=== PATIENT | female | born 2000 | race Caucasian/White ===

== ENCOUNTER 2024-11-11 23:01 | Emergency (ER) | payer SELFPAY ==
[2024-11-11 21:48] VITALS: BMI 23.3
[2024-11-11 21:55] VITALS: BP 132/82; PULSE 81
[2024-11-11 21:56] VITALS: PULSE 75; O2SAT 98
[2024-11-11 23:15] VITALS: BP 124/72; PULSE 76; RESP 15; TEMP 36.9; O2SAT 98; BMI 23.7
--- NOTE | 2024-11-11 23:21 | CT_ITS ---
PROCEDURE: CT ABDOMEN/PELVIS W IV CONT ONLY 11/11/2024 REASON FOR EXAM: RLQ pain x24 hours, emesis. 35 weeks . TECHNIQUE: CT ABDOMEN/PELVIS W IV CONT ONLY Coronal and Sagittal reconstruction series were provided. CONTRAST: Isovue 370 VOLUME: 75 mL One or more dose reduction techniques were used (e.g., Automated exposure control, adjustment of the mA and/or kV according to patient size, use of iterative reconstruction technique. RADIATION DOSE SUMMARY: DLP: 530.61 mGycm COMPARISON: None available. FINDINGS: Lung bases: Clear. Liver: Within normal limits. Gallbladder: Unremarkable. No biliary ductal dilatation. Spleen: Normal size and morphology. Small anteromedial splenule. Pancreas: Unremarkable. No ductal dilatation. Adrenals: Unremarkable. Kidneys: Normal, symmetric enhancement. No urolithiasis. Mild bilateral presumed physiologic hydroureteronephrosis related to . No perinephric edema. Bladder: Grossly unremarkable, mildly compressed/distorted by the gravid uterus. Reproductive Organs: Single intrauterine in vertex presentation. Left-sided placenta is grossly normal in appearance without previa. Ovaries not discretely identified with certainty but there are no adnexal masses or free pelvic fluid appreciated. Bowel: Unremarkable. No evidence of bowel obstruction or active inflammatory process. Appendix is identified and appears normal, without any periappendiceal inflammatory changes. Lymph nodes: No enlarged abdominopelvic lymph nodes. Vasculature: Normal course and caliber of the abdominal aorta and IVC although with mild compression by the overlying gravid uterus. Peritoneum / Retroperitoneum: No free fluid or air. Bones: Unremarkable. CT/Abdomen/Pelvis W IV Cont ONLY IMPRESSION: 1. No acute or active inflammatory intra-abdominal pathology identified. 2. Appendix is identified and appears normal without inflammation. 3. Single intrauterine gestation with no overtly concerning findings on CT. 4. Mild bilateral presumed physiologic -related hydroureteronephrosis. Reading Location: [id number]
[2024-11-11] MEDS: 0.9% Normal Saline (1000mL) 1,000 ML 999 ML IV (23:32)
[2024-11-11 23:33] LABS: Hematocrit 33.5 % (37-47); Hemoglobin 11.6 g/dL (12.0-15.0); Immature Granulocytes Count 0.110 X10^3/uL (0.0-0.0); Mean Corp Hgb Conc 34.6 g/dL (32-36); Mean Corpuscular Volume 91.3 fL (81-99); Mean Platelet Vol. 10.7 fl (6.2-12.0); NRBC Flagged by Analyzer 0 % (0-5); Platelet Count 259 K/mm3 (150-450); RBC Distribution Width CV 12.0 % (11.6-14.6); RBC Distribution Width SD 40.1 fl (35.1-43.9); Red Blood Count 3.67 M/mm3 (4.2-5.4); White Blood Count 15.7 K/mm3 (4.4-11.0)
--- NOTE | 2024-11-11 23:39 | EDS_ITS ---
HPI History of Present Illness Chief Complaint: Abd Pain Informant: patient and spouse/S.O. Narrative Narrative: Patient is a 24-year-old female who is a G1, P0 approximately 35 weeks . She reports in the last 24 hours she has been having increasing pain in the right lower. She states the pain has always been in the right lower quadrant and it was not generalized and then moved there. She states that with the increased pain she did have 1 bout of nausea and vomiting. Otherwise she denies any loose stool diarrhea dysuria or hematuria or vaginal bleeding. Secondary to increasing pain and the fact she is 35 weeks she presented to the [facility] and was evaluated by OB. They states that the pain is not related to a issue or complication and therefore recommended she be seen in the ER. Secondary to this she presents for evaluation [facility] Medical History no medical history no medical history Home Medications ?Medication ?Instructions ?Recorded ?Last Taken ?Type acetaminophen 500 mg tablet 1,000 mg (2 x 500 mg) PO 4 X/DAY 11/12/24 Unknown Rx (Tylenol Extra Strength) PRN pain #40 tabs diphenhydramine HCl 25 mg capsule 25 mg PO TID PRN elliot sea and 11/12/24 Unknown Rx (Benadryl) vomiting #30 caps Allergy/AdvReac Type Severity Reaction Status Date / Time No Known Allergies Allergy Verified 11/11/24 23:32 Surgical History no surgical history Social History Smoking Status: Never smoker ROS ROS ED Constitutional Constitutional ED: Denies chills or fever(s) Eyes Eyes: Denies change in vision ENT ENT ED: Denies sore throat Cardiovascular Cardiovascular: Denies chest pain Respiratory/Chest Respiratory/Chest: Denies cough or dyspnea Gastrointestinal Gastrointestinal: Reports abdominal pain, nausea and vomiting; Denies diarrhea or melena Genitourinary Genitourinary ED: Reports other Details: Negative vaginal bleeding or discharge ; Denies dysuria or hematuria Musculoskeletal Musculoskeletal: Denies back pain Integumentary Denies rash Neurologic Neurologic: Denies headache(s) Hematologic/Lymphatic Hematologic/Lymphatic: Denies easy bleeding or easy bruising EXAM Physical Exam Const Vital Signs: 11/11/24 21:55 11/11/24 21:55 11/11/24 21:56 Temperature Temperature Source Pulse Rate 81 75 Respiratory Rate Blood Pressure 132/82 H Blood Pressure Mean BP Systolic 132 BP Diastolic 82 Pulse Ox Oxygen Delivery Method 11/11/24 21:56 11/11/24 23:15 Temperature 98.5 F Temperature Source Oral Pulse Rate 76 Respiratory Rate 15 Blood Pressure 124/72 H Blood Pressure Mean 89 BP Systolic BP Diastolic Pulse Ox 98 98 Oxygen Delivery Method Room Air Positive well nourished and well developed General Appearance ED: well developed; Negative for pallor HEENT HEENT Narrative: Normocephalic atraumatic No tongue or lip swelling no oral lesions no airway edema or compromise; no secondary findings in the posterior pharynx to suggest infection Eyes PERRL and EOMs intact bilaterally General Eye ED: Negative for scleral icterus Neck supple Neck Narrative: No nuchal rigidity or meningeal signs Resp normal respiratory effort and clear to auscultation bilaterally Cardio regular rate and regular rhythm Rate: other Other Details: Radial and carotid pulses are equal and symmetric GI GI Narrative: Abdomen is gravid with fundus consistent with reported gestational age. There is pain on palpation in the right lower quadrant Auscultation: normoactive bowel sounds Back/Spine no CVA tenderness Extremity Extremity Narrative: Trace edema to the bilateral lower extremities that is equal and symmetric and consistent with status Negative Homans' sign bilaterally Neuro oriented x3, CN's II-XII intact bilaterally and no sensory deficits noted Sensorium / Orientation: alert Motor Exam: strength 5/5 throughout Psych mental status grossly normal Skin no rashes or lesions noted General Skin Exam: Negative for jaundice or pallor MDM MDM MDM Narrative Medical decision making narrative: Patient arrived to the ER with stable vitals but reported roughly 24 hours of pain in the right lower quadrant. The pain she states essentially began in the right lower quadrant and has stayed there. She states it is more constant in nature and does not seem to worsen with position change or motion. She has denied any vaginal bleeding or discharge or dysuria. She was evaluated already by HEAD MACHINIST and they do not feel this is related to potential labor or complication. In order to ensure it is not secondary to an acute appendicitis or potential kidney stone or UTI/pyelonephritis I elected to perform basic laboratory studies with UA and CT scan with IV contrast. White count is elevated at 15.7 and neutrophil count is elevated at 12.4 but this could be secondary to stress response from her pain as well as the leukocytosis of . Urine sample showed ketones consistent with dehydration but no blood going against kidney stone and no signs of acute infection. The CT scan according to the radiologist identifies the appendix and there is no signs of acute appendicitis. The patient is still having persistent pain so therefore the case was discussed with HEAD MACHINIST on-call Dr. Rodriguez. He states that with the workup being done this is most likely round ligament pain. He recommends patient have 1 g of Tylenol and he also will evaluate the patient in the ER as pain has been persistent. After evaluation by Dr. Rodriguez he believes that the persistent pain is from round ligament pain. He recommends patient take Tylenol for this and use Benadryl to help sleep. Therefore at this time as vitals are stable she does not have acute appendicitis or kidney stone by CT scan and workup does not reveal signs of UTI/pyelonephritis and OB does not feel this is related to a complication she will be given prescriptions for the above medication and can follow-up with HEAD MACHINIST as an outpatient. History & Record Review Discussion w/independent historian: Patient and Family Lab Data Attestation: I reviewed the patient's lab results. Labs: Laboratory Results - last 24 hr 11/11/24 11/11/24 20:21 23:15 WBC 15.7 H RBC 3.67 L Hgb 11.6 L Hct 33.5 L MCV 91.3 MCH 31.6 MCHC 34.6 RDW Std Deviation 40.1 RDW Coeff of Riley 12.0 Plt Count 259 MPV 10.7 Immature Gran % (Auto) 0.700 Neut % (Auto) 78.6 H Lymph % (Auto) 14.6 L Otero % (Auto) 5.2 Eos % (Auto) 0.5 Baso % (Auto) 0.4 Absolute Neuts (auto) 12.4 H Absolute Lymphs (auto) 2.30 Nucleated RBC % 0 Sodium 135 Potassium 3.7 Chloride 100 Carbon Dioxide 17.7 L Anion Gap 17 H BUN 6 Creatinine 0.41 L Estim Creat Clear Calc 170.22 Est GFR (MDRD) Non-Af 142 BUN/Creatinine Ratio 14.6 Glucose 77 Calcium 9.3 Total Bilirubin 0.28 Direct Bilirubin 0.11 AST 25 ALT 18 Alkaline Phosphatase 123 H Total Protein 6.8 Albumin 3.8 Globulin 3.1 Lipase 18 Urine Color Straw Urine Clarity Clear Urine pH 6.0 Ur Specific [place] 1.010 Urine Protein 15 H Urine Glucose (UA) Normal Urine Ketones 150 A* Urine Occult Blood Negative Urine Nitrite Negative Urine Bilirubin Negative Urine Urobilinogen Normal Ur Leukocyte Esterase Negative Urine RBC 0 SEEN Urine WBC 0-5 SEEN Ur Squamous Epith Cells 5-10 SEEN Urine Bacteria RARE Urine Mucus 0 SEEN Radiography Diagnostic Testing: Clinical Impression(s) from Imaging Studies Abdomen/Pelvis CT 11/11/24 23:21 IMPRESSION: 1. No acute or active inflammatory intra-abdominal pathology identified. 2. Appendix is identified and appears normal without inflammation. 3. Single intrauterine gestation with no overtly concerning findings on CT. 4. Mild bilateral presumed physiologic -related hydroureteronephrosis. Reading Location: [id number] Management Discussion w/another healthcare provider: [facility] Discharge Plan Triage Chief Complaint: Abd Pain ED Provider: Howard Pop Dx/Rx/DC Orders Clinical Impression: Pain of round ligament during , Dehydration Instructions: Round Ligament Pain, Kick Counts, ED False Labor, OB Triage: Return to Hospital or Notify Physician if you Experience: Prescriptions: New acetaminophen [Tylenol Extra Strength] 500 mg tablet 1,000 mg PO 4X/DAY PRN (Reason: pain) Qty: 40 0RF diphenhydramine HCl [Benadryl] 25 mg capsule 25 mg PO TID PRN (Reason: nausea and vomiting) Qty: 30 0RF Primary Care Provider: Care Physician,No Primary Referrals: Tai Rodriguez MD [Med Staff - Active Staff] - Care Physician,No Primary [Primary Care Provider] - Activity Restrictions/Additional Instructions: Please follow-up with HEAD MACHINIST for repeat evaluation. However after Dr. Rodriguez evaluated you in the ER and reviewed your CT scan he believes that your pain is associated with round ligament pain. Please take Tylenol up to 4 times a day to help control pain and use Benadryl to help with pain and sleep. If you develop a fever or have worsening symptoms please return to the ER for repeat evaluation Print Language: Citizen Of [place] Disposition Disposition: Home, Self Care
[2024-11-12 00:12] LABS: AST(SGOT) 25 U/L (<=31); Alanine Aminotransfer ALT/SGPT 18 U/L (<=34); Albumin, Serum 3.8 g/dL (3.5-5.0); Alkaline Phosphatase 123 U/L (35-104); Anion Gap 17 (5-15); BUN 6 mg/dL (4-19); BUN/Creat Ratio 14.6 RATIO (10-20); Bilirubin, Direct 0.11 mg/dL (0.00-0.30); Calcium,Total 9.3 mg/dL (7.6-11.0); Carbon Dioxide 17.7 mmol/L (21.0-32.0); Chloride 100 mmol/L (98-108); Estimated Creatinine Clearance 170.22 ml/min (50-250); Globulin 3.1 g/dL (2.2-4.2); Glucose 77 mg/dL (70-99); Lipase 18 U/L (13-75); Potassium 3.7 mmol/L (3.3-5.1)
[2024-11-12 00:49] LABS: Mucous, Urine 0 SEEN /hpf (<or=2+); Red Blood Cells-Urine 0 SEEN /hpf (0-5)
[2024-11-12 00:55] LABS: Color, Urine Straw (Yellow); Glucose, Dipstick Normal (Normal); Leukocyte Esterase-Dipstick Negative /ul (Negative); Nitrite-Dipstick Negative (Negative); Occult Blood-Urine Negative /ul (Negative); Protein-Dipstick 15 mg/dl (Negative); Specific Gravity, Urine 1.010 (1.002-1.030); Urine Bilirubin Dipstick Negative (Negative)
[2024-11-12 01:51] LABS: Squamous Epithelial Cells - UA 5-10 SEEN /hpf (5-10)
[2024-11-12 01:52] LABS: Ketone-Dipstick 150 mg/dl (Negative)
[2024-11-12] MEDS: DiphenhydrAMINE 50 MG/ML Syringe 25 MG IV (02:58)
[2024-11-12 03:00] VITALS: BP 122/73; PULSE 74; RESP 14; TEMP 36.7; O2SAT 99
--- NOTE | 2024-11-12 10:12 | OB.TRI.NOTE ---
HPI - General HPI Narrative JIMMY RUBIO, is a 24 F G1, P0 at 35 weeks 4 days gestation by LMP who presents to the emergency room with severe right lower quadrant pain. The patient and her were concerned about appendicitis which brought her to the ER. She follows with a overlay plastician. She indicates that she started having dull aching right lower quadrant pain about 24 hours earlier that all of a sudden became very severe. She denies any fever, nausea, vomiting, vaginal bleeding, vaginal leaking and has felt good movement. Emergency room sent her to labor and delivery for evaluation before continuing their evaluation. After evaluation on L and D with reactive NST and with labor ruled out, the patient return to the emergency room where she had a CT scan performed which showed no evidence of acute appendicitis. White count was approximately 14. After the CT scan I evaluated the patient in the emergency department which confirmed pain was likely from the right round ligament. PFSH PFSH Medical History no medical history Home Medications ?Medication ?Instructions ?Recorded ?Last Taken ?Type acetaminophen 500 mg tablet 1,000 mg (2 x 500 mg) PO 4X/DAY 11/12/24 Unknown Rx (Tylenol Extra Strength) PRN pain #40 tabs diphenhydramine HCl 25 mg capsule 25 mg PO TID PRN nausea and 11/12/24 Unknown Rx (Benadryl) vomiting #30 caps Allergy/AdvReac Type Severity Reaction Status Date / Time No Known Allergies Allergy Verified 11/11/24 23:32 Surgical History no surgical history Social History Smoking Status: Never smoker Physical Exam Narrative Afebrile, vital signs stable. Reactive heart tones were noted. Cervix is closed thick and high without any vaginal bleeding noted. Eyes General Eye: normal appearance of both eyes Resp normal respiratory effort and no retractions Effort and Inspection: able to speak in complete sentences GI soft to palpation, non-tender and non-distended GI Narrative: Marked tenderness over the right lower uterus consistent with right round ligament pain. No tenderness in lower left uterus and no tenderness in the abdominal areas which are not uterine. No tenderness over the upper uterus or left uterus. No evidence of chorioamnionitis. Assessment & Plan (1) Pain of round ligament during : PLAN: 35+ week intrauterine with some [place] Toro contractions and severe right round ligament pain. No evidence of acute appendicitis or chorioamnionitis. heart tones are reassuring. Discussed that pain may persist for several days or even weeks and suggested using Tylenol to take the edge off. Encouraged ambulation and hydration to minimize [place] Toro contractions. Discussed that patient can also use Benadryl to help with sleep over the next 1 or 2 days if needed. Encourage patient to follow-up with labor and delivery if the pain became more severe, she has vaginal bleeding, or if she develops any fevers higher than 101 ?F. Otherwise, patient plans routine follow-up with her overlay plastician.
== END 2024-11-12 03:01 | disposition home or self-care (01) ==
LOC: ED 23:01
PROVIDERS: Emergency Medicine; Emergency Provider Obstetrics & Gynecology; Visit Provider Obstetrics & Gynecology
DX: O99.891 Other specified diseases and conditions complicating pregnancy (principal); Z3A.35 35 weeks gestation of pregnancy; O99.283 Endocrine, nutritional and metabolic diseases complicating pregnancy, third trimester; E86.0 Dehydration; R10.31 Right lower quadrant pain; R10.2 Pelvic and perineal pain
CPT/HCPCS: 59025; 59050; 74177; 80048; 80076; 81001; 83690; 85025; 96361; 96374; 99221; 99282; Q9967; A4216; G0378